=== PATIENT | male | born 1990 | race Two or more races ===

== ENCOUNTER 2018-08-12 11:29 | Emergency (ER) | payer OTHER ==
[~2018-08-12] VITALS: Ht 167.6 cm; Wt 120.2 kg
[2018-08-12 11:59] VITALS: BP 122/77
[2018-08-12] MEDS ORDERED: Ketorolac 30mg Inj IM ONE (12:00)
[2018-08-12] MEDS ORDERED: Methocarbamol 500mg tab ORAL ONE (12:00)
[2018-08-12] MEDS ORDERED: ROBAXIN500 MG PO (12:05)
[2018-08-12] MEDS ORDERED: LIDOCAINE700 M1 TP (12:05)
[2018-08-12] MEDS ORDERED: IBUPROFEN600 MG ORAL (12:05)
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
--- NOTE | 2018-08-12 12:48 | Diagnostic Imaging Report ---
EXAM: XR Left Hand Complete, 3 or More Views CLINICAL HISTORY: PAIN TECHNIQUE: Frontal, lateral and oblique views of the left hand. COMPARISON: No relevant prior studies available. FINDINGS: Bones/joints: No visible displaced fracture. No dislocation. No osseous erosions. Visualized joint spaces appear unremarkable. Incidental note of 4 mm negative ulnar variance. Soft tissues: Unremarkable. No radiopaque foreign body. IMPRESSION: No acute findings.
== END 2018-08-12 13:00 | disposition home or self-care (01) ==
LOC: EMR 12:20
DX: S63.92XA Sprain of unspecified part of left wrist and hand, initial encounter (principal); V43.52XA Car driver injured in collision with other type car in traffic accident, initial encounter; Y92.410 Unspecified street and highway as the place of occurrence of the external cause; M25.561 Pain in right knee; M54.9 Dorsalgia, unspecified; Z88.0 Allergy status to penicillin
CPT/HCPCS: 73130; 96372; 99283; J1885